=== PATIENT | male | born 1995 | race Caucasian/White ===

== ENCOUNTER 2017-11-28 23:48 | Emergency (ER) | payer OTHER ==
[~2017-11-28 23:48] MED LIST: FLEXERIL10 MG PO; FLOVENT 11120 INHALA; NAPROSYN500 MG PO
[2017-11-29 00:09] LABS: BASOPHIL (%) 0.2 % (0-1); EOSINOPHIL (%) 0.4 % (0-5); HEMOGLOBIN 15.6 G/DL (12.5-16.6); IMMATURE GRANULOCYTE (%) 0.4 % (0.0-0.7); LYMPHOCYTE (%) 21.2 % (15-42); LYMPHOCYTE COUNT 2.2 K/uL (1.0-2.8); MCH 30.1 PG (29.0-34.0); MCHC 35.5 G/DL (30.0-36.0); MCV 84.8 FL (86-99); MONOCYTE (%) 4.7 % (3-12); MONOCYTE COUNT 0.5 K/uL (0-0.8); NEUTROPHIL (%) 73.1 % (45-76); NEUTROPHIL COUNT 7.6 K/uL (1.8-6.4); PLATELET COUNT 249 K/uL (156-360); RBC DIS.WIDTH-SD 36.8 % (39-53); RED BLOOD COUNT 5.19 M/uL (4.00-5.50); WHITE BLOOD COUNT 10.4 K/uL (4.1-10.2)
[2017-11-29 00:22] LABS: AMYLASE 30 IU/L (1-118); CHLORIDE 105 mEq/L (99-109); POTASSIUM 3.6 mEq/L (3.7-5.4); SODIUM 141 mEq/L (136-147)
[2017-11-29 00:27] LABS: CREATININE 0.9 mg/dL (0.6-1.3); GFR ESTIMATE (CALCULATED) > 59 mL/min/ (58.99-99999); SERUM ETHYL ALCOHOL < 10 mg/dL
[2017-11-29 00:28] LABS: UREA NITROGEN (BUN) 14 mg/dL (9-23)
[2017-11-29 00:30] LABS: LIPASE 6 U/L (1.0-51.0)
[2017-11-29 01:08] LABS: GLUCOSE 114 mg/dL (70-99)
[2017-11-29] MEDS ORDERED: PERCOCET 5/31 TABLET PO (01:30)
[2017-11-29] MEDS ORDERED: MOTRIN800 MG PO (21:16)
== END 2017-11-29 02:52 | disposition home or self-care (01) ==
LOC: TRA 23:48
PROVIDERS: Emergency Medicine
DX: S62.326A Displaced fracture of shaft of fifth metacarpal bone, right hand, initial encounter for closed fracture (principal); T14.8XXA Other injury of unspecified body region, initial encounter; V23.4XXA Motorcycle driver injured in collision with car, pick-up truck or van in traffic accident, initial encounter; Y92.410 Unspecified street and highway as the place of occurrence of the external cause; S62.001A Unspecified fracture of navicular [scaphoid] bone of right wrist, initial encounter for closed fracture; S62.131A Displaced fracture of capitate [os magnum] bone, right wrist, initial encounter for closed fracture; S62.144A Nondisplaced fracture of body of hamate [unciform] bone, right wrist, initial encounter for closed fracture; J45.909 Unspecified asthma, uncomplicated
CPT/HCPCS: 70450; 71045; 72125; 73130; 74177; 80048; 81003; 82150; 83690; 85025; 86850; 86900; 86901; 99281; 99285; G0480

== ENCOUNTER 2017-11-29 18:39 | Emergency (ER) | payer OTHER ==
[~2017-11-29] VITALS: Ht 188 cm; Wt 86.3 kg
[~2017-11-29 18:39] MED LIST changes: +PERCOCET 5/31 TABLET PO
[2017-11-29] MEDS ORDERED: MOTRIN800 MG PO (21:16)
[2017-11-29 21:36] VITALS: BP 112/65
== END 2017-11-29 21:36 | disposition home or self-care (01) ==
LOC: EME 18:39
DX: S82.001A Unspecified fracture of right patella, initial encounter for closed fracture (principal); M23.91 Unspecified internal derangement of right knee; S86.912A Strain of unspecified muscle(s) and tendon(s) at lower leg level, left leg, initial encounter; S80.12XA Contusion of left lower leg, initial encounter; V29.40XA Motorcycle driver injured in collision with unspecified motor vehicles in traffic accident, initial encounter
CPT/HCPCS: 73564; 73590; 99281; 99284